=== PATIENT | male | born 1955 | race African-American/Black ===

== ENCOUNTER 2021-07-17 16:12 | Observation (INO) | payer MEDICARE, OTHER, SELFPAY ==
[2021-07-17 17:13] LABS: #Eosinphils 0.2 thou/uL (0.0-0.7); #Lymphocytes 1.2 thou/uL (1.20-3.40); #Monocytes 0.7 thou/uL (0.11-0.59); #Neutrophils 6.5 thou/uL (1.40-6.50); %Eosinophils 2.4 % (0.0-10.0); %Monocytes 7.9 % (0.0-10.0); %Neutrophils 75.7 % (42.0-75.0); Mean Corpuscular HGB CONC 30.7 g/dL (32.0-36.0); Mean Corpuscular Hemoglobin 26.9 pg (27.0-31.0); Mean Corpuscular Volume 87.5 fL (78.0-98.0); Mean Platelet Volume 7.1 fL (7.4-10.4); Platelet Count 253 thou/uL (130-400); RBC Distribution Width 12.2 % (11.5-14.5); Red Blood Cell (RBC) Count 4.45 mill/uL (4.70-6.10); White Blood Cell (WBC) Count 8.6 thou/uL (4.8-10.8)
[2021-07-17 17:52] LABS: ALT (SGPT) 16 U/L (8-55); AST (SGOT) 18 U/L (5-34); Albumin 3.8 g/dL (3.4-4.8); Alkaline Phosphatase 76 U/L (40-110); Anion Gap 12 mmol/L (10-20); BUN (Urea Nitrogen) 12 mg/dL (8.4-25.7); Bilirubin, Total 0.6 mg/dL (0.2-1.2); Calc. Creatinine Clearance 0 mL/min (70-130); Carbon Dioxide 30 mmol/L (23-31); Chloride 103 mmol/L (98-107); Glucose 132 mg/dL (80-115); Potassium 4.1 mmol/L (3.5-5.1); Protein, Total 6.8 g/dL (5.8-8.1); Sodium 141 mmol/L (136-145)
[2021-07-17] MEDS ORDERED: Aspirin Chewable 81 MG TAB ONE (18:11)
[2021-07-17] MEDS ORDERED: Diazepam 5 MG TAB ONE (19:22)
[2021-07-17] MEDS ORDERED: Ondansetron PF 4 MG/2 ML Vial IVP PRN (19:44)
[2021-07-17] MEDS ORDERED: Labetalol HCl 100 MG/20 ML VIAL SLOW IVP PRN (19:44)
[2021-07-17] MEDS ORDERED: hydrALAZINE 20 MG/ML VIAL SLOW IVP PRN (19:44)
[2021-07-17] MEDS ORDERED: Acetaminophen 325 MG TAB PO PRN (19:44)
[2021-07-17] MEDS: Heparin 5,000 UNITS/ML VIAL SC SCH (21:55)
[2021-07-17] MEDS ORDERED: Non-Formulary Item 1 EACH (Fluticasone/Salmeterol [Advair Hfa 230/21 Inhaler] 12 GM Hfa.A INH PRN (22:27)
[2021-07-17] MEDS ORDERED: traZODone HCl 50 MG TAB PO PRN (22:27)
[2021-07-17] MEDS ORDERED: Albuterol Sulfate 2.5 mg/3 ml Neb NEB PRN (22:28)
[2021-07-17 22:57] VITALS: BMI 30.4
[2021-07-18 05:42] LABS: #Eosinphils 0.4 thou/uL (0.0-0.7); #Lymphocytes 2.2 thou/uL (1.20-3.40); #Monocytes 0.7 thou/uL (0.11-0.59); #Neutrophils 4.4 thou/uL (1.40-6.50); %Basophils 0.4 % (0.0-1.0); %Eosinophils 5.5 % (0.0-10.0); %Monocytes 8.7 % (0.0-10.0); %Neutrophils 57.4 % (42.0-75.0); Mean Corpuscular HGB CONC 31.7 g/dL (32.0-36.0); Mean Corpuscular Volume 88.2 fL (78.0-98.0); Mean Platelet Volume 7.4 fL (7.4-10.4); Platelet Count 249 thou/uL (130-400); RBC Distribution Width 12.1 % (11.5-14.5); Red Blood Cell (RBC) Count 4.29 mill/uL (4.70-6.10); White Blood Cell (WBC) Count 7.7 thou/uL (4.8-10.8)
[2021-07-18 05:52] LABS: Anion Gap 14 mmol/L (10-20); BUN (Urea Nitrogen) 14 mg/dL (8.4-25.7); Calc. Creatinine Clearance 86 mL/min (70-130); Calcium 8.7 mg/dL (7.8-10.44); Carbon Dioxide 25 mmol/L (23-31); Chloride 104 mmol/L (98-107); Cholesterol 139 mg/dl (< 200 Desired); Glucose 106 mg/dL (80-115); HDL Cholesterol 28 mg/dL (>60 Neg Risk); LDL Cholesterol, Calculated 95 mg/dL; Potassium 3.3 mmol/L (3.5-5.1); Sodium 140 mmol/L (136-145); Triglycerides 80 mg/dL (Less than 150)
[2021-07-18] MEDS ORDERED: Potassium Chloride 20 MEQ TAB PO SCH (07:00)
[2021-07-18] MEDS: Heparin 5,000 UNITS/ML VIAL SC SCH (08:44)
[2021-07-18] MEDS ORDERED: Montelukast Sodium 10 mg Tablet PO SCH (09:00)
[2021-07-18 09:04] VITALS: TEMP 97.6
[2021-07-18 11:15] LABS: SARS-CoV-2 PCR by NAA Not Detected (NotDetected)
[2021-07-18 12:05] VITALS: BP 142/87
[2021-07-18] MEDS ORDERED: Aspirin 325 MG TAB PO SCH (15:00)
== END 2021-07-18 15:25 | disposition home or self-care (01) ==
LOC: ERS 16:12 → NEURO 18:50 → INTOOBSV 18:50
PROVIDERS: ADMIT Internal Medicine; ATTEND Internal Medicine
DX: G45.9 Transient cerebral ischemic attack, unspecified (principal); E87.6 Hypokalemia; N17.9 Acute kidney failure, unspecified; I10 Essential (primary) hypertension; J45.909 Unspecified asthma, uncomplicated; J32.9 Chronic sinusitis, unspecified; Z86.73 Personal history of transient ischemic attack (TIA), and cerebral infarction without residual deficits; Z87.891 Personal history of nicotine dependence; Z79.899 Other long term (current) drug therapy; Z88.0 Allergy status to penicillin; Z91.018 Allergy to other foods; Z20.822 Contact with and (suspected) exposure to COVID-19
CPT/HCPCS: 70450; 70551; 80048; 80053; 80061; 84484; 85025 ×2; 93005; 93306; 93880; 96372 ×2; 99285; G0378 ×3; U0003; U0005; 36415; J1644

== ENCOUNTER 2022-03-26 11:48 | Outpatient (CLI) | payer MEDICARE | END 2022-03-26 11:49 | disposition home or self-care (01) | LOC: ULT 11:48 | PROVIDERS: ATTEND Family Medicine | DX: I73.9 Peripheral vascular disease, unspecified (principal) | CPT/HCPCS: 93922 ==

== ENCOUNTER 2023-07-04 13:59 | Emergency (ER) | payer MEDICARE ==
[~2023-07-04 13:59] MED LIST: Iopamidol-370 76% 500 ML MDV (1 ML CHARGE) ONE
[2023-07-04 14:41] LABS: #Eosinphils 0.1 thou/uL (0.0-0.7); #Monocytes 0.9 thou/uL (0.11-0.59); #Neutrophils 4.5 thou/uL (1.40-6.50); %Basophils 0.3 % (0.0-1.0); %Eosinophils 1.5 % (0.0-10.0); %Lymphocytes 16.1 % (21.0-51.0); %Monocytes 13.4 % (0.0-10.0); %Neutrophils 68.2 % (42.0-75.0); Hematocrit 33.6 % (42.0-52.0); Hemoglobin 10.4 g/dL (14.0-18.0); Mean Corpuscular Hemoglobin 26.9 pg (27.0-31.0); Mean Platelet Volume 9.4 fL (7.4-10.4); Platelet Count 358 10x3/uL (130-400); Red Blood Cell (RBC) Count 3.86 mill/uL (4.70-6.10); White Blood Cell (WBC) Count 6.6 10x3/uL (4.8-10.8)
[2023-07-04 15:05] LABS: ALT (SGPT) 13 U/L (8-55); AST (SGOT) 19 U/L (5-34); Albumin 3.9 g/dL (3.4-4.8); Alkaline Phosphatase 76 U/L (40-110); Anion Gap 13 mmol/L (10-20); BUN (Urea Nitrogen) 10 mg/dL (8.4-25.7); Bilirubin, Total 0.7 mg/dL (0.2-1.2); Calc. Creatinine Clearance 0 mL/min (70-130); Calcium 9.1 mg/dL (7.8-10.44); Carbon Dioxide 29 mmol/L (23-31); Chloride 97 mmol/L (98-107); Estimated GFR 90; Globulin 3.3 g/dL (2.4-3.5); Glucose 108 mg/dL (80-115); Lipase 23 U/L (8-78); Potassium 3.3 mmol/L (3.5-5.1); Protein, Total 7.2 g/dL (5.8-8.1); Sodium 136 mmol/L (136-145)
[2023-07-04] MEDS ORDERED: Acetaminophen 500 MG TAB ONE (15:35)
[2023-07-04] MEDS ORDERED: Potassium Chloride 20 MEQ TAB ONE (15:35)
[2023-07-04] MEDS ORDERED: Ondansetron PF 4 MG/2 ML Vial ONE (15:35)
[2023-07-04 16:30] LABS: Troponin I Less than 0.010 ng/mL (< 0.028)
[2023-07-04 18:29] LABS: Bacteria/HPF None Seen HPF (None Seen); Bilirubin Negative (Negative); Blood, Urine Negative (Negative); CAUTI Indications for Culture Dysuria,urgency,freq; Clarity Clear (Clear); Glucose, Urine (Dipstick) Normal (Negative); Ketone, Urine 40 mg/dL (Negative); Leukocyte Negative Leu/uL (Negative); Nitrite Negative (Negative); Protein, Urine (Dipstick) 50 mg/dL (Neg-Trace); RBC/HPF 0-3 HPF (0-3); Specific Gravity, Urine 1.025 (1.002-1.036); Squamous Epithelial 0-3 HPF (0-3); Urobilinogen Normal mg/dL (Less than 2); WBC/HPF 0-3 HPF (0-3)
[2023-07-04 18:30] LABS: Urine Culture Reflex No No
== END 2023-07-04 18:33 | disposition home or self-care (01) ==
LOC: ERS 13:59
DX: K63.89 Other specified diseases of intestine (principal); I10 Essential (primary) hypertension
CPT/HCPCS: 36415; 74177; 80053; 81001; 83690; 84484; 85025; 93005; 96361; 96374; J2405; Q9967

== ENCOUNTER 2023-07-07 22:00 | Inpatient (IN) | payer MEDICARE, OTHER, SELFPAY ==
[2023-07-07] MEDS ORDERED: Morphine 4 MG/ML VIAL ONE (22:35)
[2023-07-07] MEDS ORDERED: Ondansetron PF 4 MG/2 ML Vial ONE (22:35)
[2023-07-07 22:52] LABS: #Eosinphils 0.2 thou/uL (0.0-0.7); #Monocytes 0.9 thou/uL (0.11-0.59); #Neutrophils 3.8 thou/uL (1.40-6.50); %Basophils 0.3 % (0.0-1.0); %Eosinophils 3.2 % (0.0-10.0); %Lymphocytes 18.4 % (21.0-51.0); %Monocytes 15.3 % (0.0-10.0); %Neutrophils 62.3 % (42.0-75.0); Hematocrit 34.9 % (42.0-52.0); Hemoglobin 10.8 g/dL (14.0-18.0); Mean Corpuscular HGB CONC 30.9 g/dL (32.0-36.0); Mean Corpuscular Hemoglobin 26.4 pg (27.0-31.0); Mean Corpuscular Volume 85.3 fl (78.0-98.0); Mean Platelet Volume 9.1 fL (7.4-10.4); Platelet Count 441 10x3/uL (130-400); RBC Distribution Width 12.8 % (11.5-14.5); Red Blood Cell (RBC) Count 4.09 mill/uL (4.70-6.10)
[2023-07-07 23:31] LABS: ALT (SGPT) 19 U/L (8-55); AST (SGOT) 27 U/L (5-34); Alkaline Phosphatase 83 U/L (40-110); Anion Gap 10 mmol/L (10-20); BUN (Urea Nitrogen) 10 mg/dL (8.4-25.7); Bilirubin, Total 0.7 mg/dL (0.2-1.2); Calc. Creatinine Clearance 0 mL/min (70-130); Calcium 9.2 mg/dL (7.8-10.44); Carbon Dioxide 35 mmol/L (23-31); Chloride 94 mmol/L (98-107); Estimated GFR 70; Globulin 3.4 g/dL (2.4-3.5); Glucose 101 mg/dL (80-115); Lipase 33 U/L (8-78); Potassium 3.3 mmol/L (3.5-5.1); Protein, Total 7.4 g/dL (5.8-8.1); Sodium 136 mmol/L (136-145)
[2023-07-08] MEDS ORDERED: Morphine 4 MG/ML VIAL ONE (00:09)
[2023-07-08] MEDS ORDERED: Albuterol 2.5 MG (3 mL) NEB NEB PRN (00:31)
[2023-07-08 01:08] VITALS: BMI 26.7
[2023-07-08] MEDS: hydrALAZINE 20 MG/ML VIAL SLOW IVP SCH (01:33)
[2023-07-08] MEDS: Sodium Chloride 0.9% 1,000 ML IV SCH (01:34)
[2023-07-08] MEDS: Ipratropium/Albuterol 3 ML NEB NEB SCH (02:39)
[2023-07-08] MEDS: Morphine 4 MG/ML VIAL SLOW IVP PRN (03:22)
[2023-07-08 05:15] LABS: #Eosinphils 0.2 thou/uL (0.0-0.7); #Monocytes 0.9 thou/uL (0.11-0.59); #Neutrophils 3.7 thou/uL (1.40-6.50); %Basophils 0.3 % (0.0-1.0); %Eosinophils 3.1 % (0.0-10.0); %Lymphocytes 21.5 % (21.0-51.0); %Neutrophils 59.8 % (42.0-75.0); Hematocrit 30.1 % (42.0-52.0); Hemoglobin 9.2 g/dL (14.0-18.0); Mean Corpuscular HGB CONC 30.6 g/dL (32.0-36.0); Mean Corpuscular Hemoglobin 26.7 pg (27.0-31.0); Mean Corpuscular Volume 87.2 fl (78.0-98.0); Mean Platelet Volume 9.4 fL (7.4-10.4); Platelet Count 407 10x3/uL (130-400); RBC Distribution Width 12.9 % (11.5-14.5); Red Blood Cell (RBC) Count 3.45 mill/uL (4.70-6.10); White Blood Cell (WBC) Count 6.2 10x3/uL (4.8-10.8)
[2023-07-08 05:41] LABS: ALT (SGPT) 14 U/L (8-55); AST (SGOT) 23 U/L (5-34); Albumin 3.4 g/dL (3.4-4.8); Alkaline Phosphatase 70 U/L (40-110); Anion Gap 11 mmol/L (10-20); BUN (Urea Nitrogen) 9 mg/dL (8.4-25.7); Bilirubin, Total 0.5 mg/dL (0.2-1.2); Calc. Creatinine Clearance 101 mL/min (70-130); Calcium 8.3 mg/dL (7.8-10.44); Carbon Dioxide 32 mmol/L (23-31); Chloride 98 mmol/L (98-107); Estimated GFR 94; Globulin 2.7 g/dL (2.4-3.5); Glucose 89 mg/dL (80-115); Potassium 3.3 mmol/L (3.5-5.1); Protein, Total 6.1 g/dL (5.8-8.1); Sodium 138 mmol/L (136-145)
[2023-07-08] MEDS: Morphine 2 MG/ML VIAL SLOW IVP PRN (05:46)
[2023-07-08] MEDS: Mometasone 200 MCG/Formoterol 5 MCG 120 PUFF INHALER INH SCH (06:15)
[2023-07-08] MEDS: Potassium Chloride 20 MEQ in Premix 1 BAG IVPB SCH (08:05)
[2023-07-08] MEDS ORDERED: hydrALAZINE 20 MG/ML VIAL SLOW IVP PRN (08:26)
[2023-07-08] MEDS ORDERED: PROPOFOL 20 ML ONE (13:40)
[2023-07-08] MEDS ORDERED: Rocuronium Bromide 10 MG/ML (10ML VIAL) ONE ×2 (13:40→16:13)
[2023-07-08] MEDS ORDERED: Lidocaine 2% PF 5 ML VIAL ONE (13:40)
[2023-07-08] MEDS ORDERED: fentaNYL PF 100 MCG/2 ML SYRINGE ONE ×2 (13:41→14:23)
[2023-07-08] MEDS ORDERED: Clindamycin/D5W 600 mg/50 ml Premix Bag ONE (13:43)
[2023-07-08] MEDS ORDERED: SUCCINYLCHOLINE/SOD CL,ISO/PF 200 MG/10 ML SYRINGE FS ONE (14:01)
[2023-07-08] MEDS ORDERED: fentaNYL 50 mcg/mL 1 mL Vial ONE ×5 (16:12→19:34)
[2023-07-08] MEDS ORDERED: Dexamethasone 4 mg/ml Vial ONE (17:14)
[2023-07-08] MEDS ORDERED: Ondansetron PF 4 MG/2 ML Vial ONE (17:14)
[2023-07-08] MEDS ORDERED: SUGAMMADEX SODIUM 200 MG/2 ML VIAL ONE (17:14)
[2023-07-09 05:27] LABS: #Monocytes 1.5 thou/uL (0.11-0.59); #Neutrophils 15.1 thou/uL (1.40-6.50); %Basophils 0.1 % (0.0-1.0); %Lymphocytes 3.2 % (21.0-51.0); %Monocytes 8.7 % (0.0-10.0); %Neutrophils 87.1 % (42.0-75.0); Hematocrit 29.1 % (42.0-52.0); Hemoglobin 8.8 g/dL (14.0-18.0); Mean Corpuscular HGB CONC 30.2 g/dL (32.0-36.0); Mean Corpuscular Volume 85.8 fl (78.0-98.0); Mean Platelet Volume 9.5 fL (7.4-10.4); Platelet Count 452 10x3/uL (130-400); Red Blood Cell (RBC) Count 3.39 mill/uL (4.70-6.10); White Blood Cell (WBC) Count 17.4 10x3/uL (4.8-10.8)
[2023-07-09 05:43] LABS: Actual Bicarbonate (HCO3v) 26.9 mEq/L (22-28); Base Excess 1.5 mEq/L (-2.0 to +3.0); Calcium, Ionized (venous) 1.08 mmol/L (1.16-1.32); Chloride (VBG) 99 mmol/L (98-106); Hematocrit-VBG 30 % (42.0-52.0); Hemoglobin (Hb) 10.1 g/dL (12.6-17.4); Potassium (VBG) 4.05 mmol/L (3.70-5.30); Sodium 135 mmol/L (133-146); pH (venous) 7.387 (7.32-7.43)
[2023-07-09] MEDS ORDERED: traMADol HCl 50 MG TAB PO PRN (05:58)
[2023-07-09 06:00] LABS: ALT (SGPT) 20 U/L (8-55); AST (SGOT) 23 U/L (5-34); Albumin 2.8 g/dL (3.4-4.8); Alkaline Phosphatase 53 U/L (40-110); Anion Gap 12 mmol/L (10-20); BUN (Urea Nitrogen) 11 mg/dL (8.4-25.7); Bilirubin, Total 1.5 mg/dL (0.2-1.2); Calc. Creatinine Clearance 98 mL/min (70-130); Calcium 8.1 mg/dL (7.8-10.44); Carbon Dioxide 28 mmol/L (23-31); Chloride 100 mmol/L (98-107); Estimated GFR 91; Globulin 2.4 g/dL (2.4-3.5); Glucose 134 mg/dL (80-115); Potassium 4.1 mmol/L (3.5-5.1); Protein, Total 5.2 g/dL (5.8-8.1); Sodium 136 mmol/L (136-145)
[2023-07-09] MEDS: fentaNYL 50 mcg/mL 1 mL Vial SLOW IVP SCH (11:16)
[2023-07-09] MEDS: traMADol HCl 50 MG TAB PO SCH (12:38)
[2023-07-09] MEDS: Ketorolac Tromethamine 30 MG (1 mL) VIAL IVP SCH (17:58)
[2023-07-10 06:36] LABS: #Monocytes 1.4 thou/uL (0.11-0.59); #Neutrophils 11.1 thou/uL (1.40-6.50); %Basophils 0.1 % (0.0-1.0); %Eosinophils 0.3 % (0.0-10.0); %Lymphocytes 6.9 % (21.0-51.0); %Neutrophils 81.9 % (42.0-75.0); Hematocrit 27.5 % (42.0-52.0); Hemoglobin 8.1 g/dL (14.0-18.0); Mean Corpuscular HGB CONC 29.5 g/dL (32.0-36.0); Mean Corpuscular Hemoglobin 26.1 pg (27.0-31.0); Mean Corpuscular Volume 88.7 fl (78.0-98.0); Mean Platelet Volume 9.5 fL (7.4-10.4); Platelet Count 417 10x3/uL (130-400); RBC Distribution Width 13.2 % (11.5-14.5); White Blood Cell (WBC) Count 13.6 10x3/uL (4.8-10.8)
[2023-07-10 07:02] LABS: ALT (SGPT) 18 U/L (8-55); AST (SGOT) 24 U/L (5-34); Albumin 2.8 g/dL (3.4-4.8); Alkaline Phosphatase 54 U/L (40-110); Anion Gap 11 mmol/L (10-20); BUN (Urea Nitrogen) 14 mg/dL (8.4-25.7); Bilirubin, Total 2.1 mg/dL (0.2-1.2); Calc. Creatinine Clearance 109 mL/min (70-130); Calcium 8.1 mg/dL (7.8-10.44); Carbon Dioxide 28 mmol/L (23-31); Chloride 101 mmol/L (98-107); Estimated GFR 96; Globulin 2.6 g/dL (2.4-3.5); Glucose 90 mg/dL (80-115); Potassium 3.9 mmol/L (3.5-5.1); Protein, Total 5.4 g/dL (5.8-8.1); Sodium 136 mmol/L (136-145)
[2023-07-10] MEDS: Enoxaparin 40 MG (0.4 mL) SYRINGE SC SCH (08:41)
[2023-07-10] MEDS: Sodium Chloride 0.9% 500 ML IV SCH (21:07)
[2023-07-10] MEDS: Acetaminophen 325 MG TAB PO PRN (23:44)
[2023-07-11 05:55] LABS: #Eosinphils 0.4 thou/uL (0.0-0.7); #Monocytes 1.3 thou/uL (0.11-0.59); #Neutrophils 10.2 thou/uL (1.40-6.50); %Basophils 0.2 % (0.0-1.0); %Eosinophils 3.3 % (0.0-10.0); %Lymphocytes 8.3 % (21.0-51.0); %Monocytes 9.6 % (0.0-10.0); %Neutrophils 77.8 % (42.0-75.0); Hemoglobin 8.2 g/dL (14.0-18.0); Mean Corpuscular HGB CONC 30.4 g/dL (32.0-36.0); Mean Corpuscular Volume 88.8 fl (78.0-98.0); Mean Platelet Volume 8.8 fL (7.4-10.4); Platelet Count 391 10x3/uL (130-400); RBC Distribution Width 13.3 % (11.5-14.5); Red Blood Cell (RBC) Count 3.04 mill/uL (4.70-6.10); White Blood Cell (WBC) Count 13.1 10x3/uL (4.8-10.8)
[2023-07-11 06:27] LABS: ALT (SGPT) 23 U/L (8-55); AST (SGOT) 28 U/L (5-34); Albumin 2.8 g/dL (3.4-4.8); Alkaline Phosphatase 57 U/L (40-110); Anion Gap 11 mmol/L (10-20); BUN (Urea Nitrogen) 13 mg/dL (8.4-25.7); Bilirubin, Total 2.4 mg/dL (0.2-1.2); Calc. Creatinine Clearance 116 mL/min (70-130); Calcium 8.1 mg/dL (7.8-10.44); Carbon Dioxide 26 mmol/L (23-31); Chloride 104 mmol/L (98-107); Estimated GFR 98; Globulin 2.6 g/dL (2.4-3.5); Glucose 95 mg/dL (80-115); Potassium 4.1 mmol/L (3.5-5.1); Protein, Total 5.4 g/dL (5.8-8.1); Sodium 137 mmol/L (136-145)
[2023-07-11] MEDS ORDERED: HYDROcodone/Acetaminophen 7.5/325 mg Tablet PO PRN (12:37)
[2023-07-11] MEDS: Polyethylene Glycol 3350 17 GM Packet PO SCH (13:03)
[2023-07-11] MEDS: Senokot S 8.6-50 MG TAB PO SCH ×2 (13:03→20:32)
[2023-07-11] MEDS: Fentanyl 100 MCG/2 ML VIAL SLOW IVP SCH (13:20)
[2023-07-11] MEDS ORDERED: traMADol HCl 50 MG TAB PO PRN (13:22)
[2023-07-11] MEDS: fentaNYL 50 mcg/mL 1 mL Vial SLOW IVP SCH (14:36)
[2023-07-11] MEDS ORDERED: Azithromycin 500 MG in Sodium Chloride 0.9% 250 ML 250 ML IVPB SCH (15:00)
[2023-07-11] MEDS: LevoFLOXacin 750 mg/D5W 750 MG in Premix 1 BAG IVPB SCH (15:56)
[2023-07-11] MEDS: Naproxen 500 MG TAB PO PRN (18:16)
[2023-07-12 05:54] LABS: #Eosinphils 0.6 thou/uL (0.0-0.7); #Monocytes 1.1 thou/uL (0.11-0.59); #Neutrophils 7.1 thou/uL (1.40-6.50); %Basophils 0.2 % (0.0-1.0); %Eosinophils 5.8 % (0.0-10.0); %Monocytes 10.7 % (0.0-10.0); %Neutrophils 70.9 % (42.0-75.0); Hematocrit 29.3 % (42.0-52.0); Hemoglobin 8.6 g/dL (14.0-18.0); Mean Corpuscular HGB CONC 29.4 g/dL (32.0-36.0); Mean Corpuscular Hemoglobin 26.3 pg (27.0-31.0); Mean Corpuscular Volume 89.6 fl (78.0-98.0); Mean Platelet Volume 9.3 fL (7.4-10.4); RBC Distribution Width 13.2 % (11.5-14.5); Red Blood Cell (RBC) Count 3.27 mill/uL (4.70-6.10)
[2023-07-12 06:03] LABS: Platelet Count 497 10x3/uL (130-400)
[2023-07-12 06:16] LABS: ALT (SGPT) 26 U/L (8-55); AST (SGOT) 30 U/L (5-34); Albumin 2.9 g/dL (3.4-4.8); Alkaline Phosphatase 61 U/L (40-110); Anion Gap 13 mmol/L (10-20); BUN (Urea Nitrogen) 12 mg/dL (8.4-25.7); Bilirubin, Total 1.8 mg/dL (0.2-1.2); Calc. Creatinine Clearance 112 mL/min (70-130); Calcium 8.7 mg/dL (7.8-10.44); Carbon Dioxide 28 mmol/L (23-31); Chloride 101 mmol/L (98-107); Estimated GFR 97; Globulin 3.1 g/dL (2.4-3.5); Glucose 107 mg/dL (80-115); Sodium 138 mmol/L (136-145)
[2023-07-12] MEDS: Polyethylene Glycol 3350 17 GM Packet PO SCH (08:23)
[2023-07-12] MEDS: Ondansetron PF 4 MG/2 ML Vial IVP PRN (13:03)
[2023-07-13 06:21] LABS: #Eosinphils 0.5 thou/uL (0.0-0.7); #Monocytes 1.1 thou/uL (0.11-0.59); %Basophils 0.5 % (0.0-1.0); %Eosinophils 5.2 % (0.0-10.0); %Monocytes 12.1 % (0.0-10.0); %Neutrophils 67.2 % (42.0-75.0); Hematocrit 31.5 % (42.0-52.0); Hemoglobin 9.2 g/dL (14.0-18.0); Mean Corpuscular HGB CONC 29.2 g/dL (32.0-36.0); Mean Corpuscular Hemoglobin 25.5 pg (27.0-31.0); Mean Corpuscular Volume 87.3 fl (78.0-98.0); Mean Platelet Volume 9.1 fL (7.4-10.4); Platelet Count 545 10x3/uL (130-400); RBC Distribution Width 13.2 % (11.5-14.5); Red Blood Cell (RBC) Count 3.61 mill/uL (4.70-6.10); White Blood Cell (WBC) Count 8.9 10x3/uL (4.8-10.8)
[2023-07-13 06:47] LABS: ALT (SGPT) 38 U/L (8-55); AST (SGOT) 45 U/L (5-34); Alkaline Phosphatase 61 U/L (40-110); Anion Gap 13 mmol/L (10-20); BUN (Urea Nitrogen) 13 mg/dL (8.4-25.7); Bilirubin, Total 1.6 mg/dL (0.2-1.2); Calc. Creatinine Clearance 115 mL/min (70-130); Calcium 9.1 mg/dL (7.8-10.44); Carbon Dioxide 32 mmol/L (23-31); Chloride 98 mmol/L (98-107); Estimated GFR 97; Glucose 99 mg/dL (80-115); Potassium 3.9 mmol/L (3.5-5.1); Sodium 139 mmol/L (136-145)
[2023-07-13] MEDS: Scopolamine 1 mg/72 hour Patch TD SCH (12:04)
[2023-07-13] MEDS: Metoclopramide HCl 10 MG (2 mL) VIAL IVP SCH (12:04)
[2023-07-13] MEDS ORDERED: Metoclopramide HCl 10 MG (2 mL) VIAL IVP SCH (14:00)
[2023-07-13] MEDS: Morphine 2 MG/ML VIAL SLOW IVP PRN (18:50)
[2023-07-13] MEDS: Acetaminophen/Codeine 30-300mg Tablet PO PRN (23:59)
[2023-07-14 06:09] LABS: #Eosinphils 0.3 thou/uL (0.0-0.7); #Monocytes 1.1 thou/uL (0.11-0.59); #Neutrophils 5.8 thou/uL (1.40-6.50); %Basophils 0.5 % (0.0-1.0); %Eosinophils 2.9 % (0.0-10.0); %Lymphocytes 12.9 % (21.0-51.0); %Monocytes 13.3 % (0.0-10.0); %Neutrophils 67.7 % (42.0-75.0); Hematocrit 29.3 % (42.0-52.0); Hemoglobin 8.7 g/dL (14.0-18.0); Mean Corpuscular HGB CONC 29.7 g/dL (32.0-36.0); Mean Corpuscular Hemoglobin 25.5 pg (27.0-31.0); Mean Corpuscular Volume 85.9 fl (78.0-98.0); Mean Platelet Volume 9.1 fL (7.4-10.4); Platelet Count 503 10x3/uL (130-400); RBC Distribution Width 13.4 % (11.5-14.5); Red Blood Cell (RBC) Count 3.41 mill/uL (4.70-6.10); White Blood Cell (WBC) Count 8.5 10x3/uL (4.8-10.8)
[2023-07-14 06:30] LABS: ALT (SGPT) 49 U/L (8-55); AST (SGOT) 63 U/L (5-34); Albumin 2.8 g/dL (3.4-4.8); Alkaline Phosphatase 66 U/L (40-110); Anion Gap 12 mmol/L (10-20); BUN (Urea Nitrogen) 12 mg/dL (8.4-25.7); Bilirubin, Total 1.6 mg/dL (0.2-1.2); Calc. Creatinine Clearance 121 mL/min (70-130); Calcium 8.7 mg/dL (7.8-10.44); Carbon Dioxide 31 mmol/L (23-31); Chloride 97 mmol/L (98-107); Estimated GFR 99; Globulin 2.8 g/dL (2.4-3.5); Glucose 91 mg/dL (80-115); Potassium 3.7 mmol/L (3.5-5.1); Protein, Total 5.6 g/dL (5.8-8.1); Sodium 136 mmol/L (136-145)
[2023-07-14] MEDS: Ondansetron PF 4 MG/2 ML Vial IVP PRN (18:07)
[2023-07-15 05:00] LABS: #Eosinphils 0.2 thou/uL (0.0-0.7); #Monocytes 1.2 thou/uL (0.11-0.59); #Neutrophils 5.7 thou/uL (1.40-6.50); %Basophils 0.1 % (0.0-1.0); %Eosinophils 2.9 % (0.0-10.0); %Monocytes 13.9 % (0.0-10.0); %Neutrophils 68.4 % (42.0-75.0); Hematocrit 27.2 % (42.0-52.0); Hemoglobin 8.2 g/dL (14.0-18.0); Mean Corpuscular HGB CONC 30.1 g/dL (32.0-36.0); Mean Corpuscular Hemoglobin 25.7 pg (27.0-31.0); Mean Corpuscular Volume 85.3 fl (78.0-98.0); Mean Platelet Volume 8.6 fL (7.4-10.4); RBC Distribution Width 13.3 % (11.5-14.5); Red Blood Cell (RBC) Count 3.19 mill/uL (4.70-6.10); White Blood Cell (WBC) Count 8.3 10x3/uL (4.8-10.8)
[2023-07-15 05:05] LABS: Platelet Count 396 10x3/uL (130-400)
[2023-07-15 05:26] LABS: ALT (SGPT) 65 U/L (8-55); AST (SGOT) 77 U/L (5-34); Albumin 2.7 g/dL (3.4-4.8); Alkaline Phosphatase 76 U/L (40-110); Anion Gap 11 mmol/L (10-20); BUN (Urea Nitrogen) 9 mg/dL (8.4-25.7); Bilirubin, Total 1.5 mg/dL (0.2-1.2); Calc. Creatinine Clearance 119 mL/min (70-130); Calcium 8.3 mg/dL (7.8-10.44); Carbon Dioxide 30 mmol/L (23-31); Chloride 97 mmol/L (98-107); Estimated GFR 99; Globulin 2.7 g/dL (2.4-3.5); Glucose 103 mg/dL (80-115); Potassium 3.7 mmol/L (3.5-5.1); Protein, Total 5.4 g/dL (5.8-8.1); Sodium 134 mmol/L (136-145)
[2023-07-15] MEDS ORDERED: Iopamidol-370 76% 500 ML MDV (1 ML CHARGE) ONE (11:28)
[2023-07-15 17:02] VITALS: BP 149/77; TEMP 98
== END 2023-07-15 17:05 | disposition home or self-care (01) | DRG 329 ==
LOC: ERS 22:00 → T4-A 07-08 00:31 → OBSVTOIN 07-08 00:31
PROVIDERS: ADMIT Student in an Organized Health Care Education/Training Program; ATTEND Family Medicine
PROC: 0DTF0ZZ Resection of Right Large Intestine, Open Approach (ICD-10-PCS; principal; 2023-07-08)
PROC: 0DBV0ZX Excision of Mesentery, Open Approach, Diagnostic (ICD-10-PCS; 2023-07-08)
DX: C18.9 Malignant neoplasm of colon, unspecified (principal); J18.9 Pneumonia, unspecified organism; J96.01 Acute respiratory failure with hypoxia; K56.609 Unspecified intestinal obstruction, unspecified as to partial versus complete obstruction; N39.0 Urinary tract infection, site not specified; J45.50 Severe persistent asthma, uncomplicated; D64.9 Anemia, unspecified; Z79.82 Long term (current) use of aspirin; Z88.0 Allergy status to penicillin; Z79.899 Other long term (current) drug therapy; I10 Essential (primary) hypertension; Z98.890 Other specified postprocedural states; Z87.891 Personal history of nicotine dependence; Z83.3 Family history of diabetes mellitus
CPT/HCPCS: 36415; 71045; 71046; 71260; 74018; 74177; 80053; 82378; 82805; 83605; 83690; 83735; 85025; 86850; 86900; 86901; 88305; 88309; 88341; 88342; 93005; 93010; 94640; 96374; 96375; 96376; A4314; J0360; J1100; J1650; J1885; J1956; J2001; J2270; J2272; J2405; J2704; J2765; J3010; J3480; J3490; J7030; J7050; J7620; Q9967

== ENCOUNTER 2023-11-03 13:26 | Outpatient (CLI) | payer MEDICARE | END 2023-11-03 13:27 | disposition home or self-care (01) | LOC: CT 13:26 | PROVIDERS: ATTEND Internal Medicine Hematology & Oncology | DX: C18.0 Malignant neoplasm of cecum (principal); C78.5 Secondary malignant neoplasm of large intestine and rectum; K80.20 Calculus of gallbladder without cholecystitis without obstruction; N40.0 Benign prostatic hyperplasia without lower urinary tract symptoms; Z90.49 Acquired absence of other specified parts of digestive tract | CPT/HCPCS: 71260; 74177 ==

== ENCOUNTER 2024-04-24 18:18 | Inpatient (IN) | payer MEDICARE ==
[2024-04-24] MEDS ORDERED: Morphine 4 MG/ML VIAL ONE (19:16)
[2024-04-24] MEDS ORDERED: Ondansetron PF 4 MG/2 ML Vial ONE ×2 (19:18→21:56)
[2024-04-24 19:26] LABS: Hematocrit 43.2 % (42.0-52.0); Hemoglobin 14.8 g/dL (14.0-18.0); Mean Corpuscular HGB CONC 34.3 g/dL (32.0-36.0); Mean Corpuscular Hemoglobin 33.2 pg (27.0-31.0); Mean Corpuscular Volume 96.9 fL (78.0-98.0); Mean Platelet Volume 10.2 fL (7.4-10.4); Platelet Count 215 10x3/uL (130-400); RBC Distribution Width 15.8 % (11.5-14.5); Red Blood Cell (RBC) Count 4.46 mill/uL (4.70-6.10)
[2024-04-24 19:45] LABS: Band 14 % (5-11); Eosinophils 5 % (0-10); Lymphocytes 13 % (21-51); Macrocytosis SLIGHT = 6-15 cells HPF (0-5); Monocytes 20 % (0-10); Neutrophil 44 % (42-75); Platelet Adequacy Comment Platelets Normal; Polychromasia SLIGHT = 2-3 cells HPF (0-2); Reactive Lymphocytes 4 % (0-10); Tear Drops SLIGHT = 2-5 cells HPF (0-1)
[2024-04-24 19:48] LABS: ALT (SGPT) 23 U/L (8-55); AST (SGOT) 39 U/L (5-34); Alkaline Phosphatase 95 U/L (40-110); Anion Gap 18 mmol/L (10-20); BUN (Urea Nitrogen) 35 mg/dL (8.4-25.7); Bilirubin, Total 1.7 mg/dL (0.2-1.2); Calc. Creatinine Clearance 0 mL/min (70-130); Calcium 8.9 mg/dL (7.8-10.44); Carbon Dioxide 21 mmol/L (23-31); Chloride 100 mmol/L (98-107); Estimated GFR 33; Globulin 3.5 g/dL (2.4-3.5); Glucose 138 mg/dL (80-115); Lipase 36 U/L (8-78); Magnesium 0.9 mg/dL (1.6-2.6); Potassium 3.5 mmol/L (3.5-5.1); Protein, Total 7.5 g/dL (5.8-8.1); Sodium 135 mmol/L (136-145)
[2024-04-24 19:51] LABS: Troponin I Less than 0.010 ng/mL (< 0.028)
[2024-04-24] MEDS ORDERED: Magnesium 2 GM/50 ML BAG (IN WATER) ONE (20:07)
[2024-04-24] MEDS ORDERED: Acetaminophen 325 MG TAB PO PRN (22:27)
[2024-04-24 23:05] LABS: Lactic Acid 2.23 mmol/L (0.5-2.2)
[2024-04-24] MEDS: Magnesium 2 GM/50 ML(in water) 2 GM in Premix 1 BAG IVPB SCH (23:54)
[2024-04-24] MEDS: Sodium Chloride 0.9% 1,000 ML IV SCH (23:55)
[2024-04-25] MEDS: Ipratropium/Albuterol 3 ML NEB NEB SCH (00:07)
[2024-04-25 06:44] LABS: Hemoglobin 12.9 g/dL (14.0-18.0); Mean Corpuscular HGB CONC 33.1 g/dL (32.0-36.0); Mean Corpuscular Volume 99.7 fL (78.0-98.0); Mean Platelet Volume 10.3 fL (7.4-10.4); Platelet Count 160 10x3/uL (130-400); Red Blood Cell (RBC) Count 3.91 mill/uL (4.70-6.10)
[2024-04-25 06:45] LABS: Band 4 % (5-11); Eosinophils 3 % (0-10); Lymphocytes 6 % (21-51); Monocytes 13 % (0-10); Neutrophil 70 % (42-75); Platelet Adequacy Comment Platelets Normal; Polychromasia SLIGHT = 2-3 cells HPF (0-2); Reactive Lymphocytes 3 % (0-10); Tear Drops SLIGHT = 2-5 cells HPF (0-1)
[2024-04-25 06:48] LABS: Anion Gap 15 mmol/L (10-20); BUN (Urea Nitrogen) 28 mg/dL (8.4-25.7); Calc. Creatinine Clearance 55 mL/min (70-130); Calcium 8.3 mg/dL (7.8-10.44); Carbon Dioxide 20 mmol/L (23-31); Chloride 106 mmol/L (98-107); Estimated GFR 46; Glucose 107 mg/dL (80-115); Magnesium 1.6 mg/dL (1.6-2.6); Potassium 3.6 mmol/L (3.5-5.1); Sodium 137 mmol/L (136-145)
[2024-04-25] MEDS: Mometasone 100 MCG/Formoterol 5 MCG 120 PUFF INHALER INH SCH (07:21)
[2024-04-25] MEDS ORDERED: Non-Formulary Item 1 EACH (Fluticasone/Umeclidin/Vilanter [Trelegy Ellipta 200-62.5-25] 1 INH SCH (09:00)
[2024-04-25 15:51] LABS: Bilirubin Negative (Negative); Blood, Urine 3+ (Negative); CAUTI Indications for Culture Dysuria,urgency,freq; Glucose, Urine (Dipstick) Normal (Negative); Ketone, Urine Trace mg/dL (Negative); Leukocyte Negative Leu/uL (Negative); Nitrite Negative (Negative); Protein, Urine (Dipstick) 30 mg/dL (Neg-Trace); RBC/HPF Greater than 50 HPF (0-3); Specific Gravity, Urine 1.033 (1.002-1.036); Squamous Epithelial 0-3 HPF (0-3); Urobilinogen Normal mg/dL (Less than 2); WBC/HPF 0-3 HPF (0-3); pH, Urine 5.5 (5.0-9.0)
[2024-04-25 15:55] LABS: Bacteria/HPF 1+ HPF (None Seen); Clarity Cloudy (Clear)
[2024-04-25 15:56] LABS: Yeast-Budding 1+ HPF (None Seen)
[2024-04-25 15:57] LABS: Urine Culture Reflex No No
[2024-04-25] MEDS: Enoxaparin 40 MG (0.4 mL) SYRINGE SC SCH (20:15)
[2024-04-25] MEDS: Morphine 2 MG/ML VIAL SLOW IVP PRN (22:24)
[2024-04-26] MEDS: Benzocaine/Menthol 1 LOZ LOZ PO PRN (01:51)
[2024-04-26 04:47] LABS: #Basophils 0.03 10x3/uL (0.0-0.2); %Basophils 0.4 % (0.0-1.0); %Eosinophils 3.6 % (0.0-10.0); %Lymphocytes 17.1 % (21.0-51.0); %Monocytes 17.5 % (0.0-10.0); %Neutrophils 59.9 % (42.0-75.0); Hematocrit 35.2 % (42.0-52.0); Hemoglobin 11.9 g/dL (14.0-18.0); Mean Corpuscular HGB CONC 33.8 g/dL (32.0-36.0); Mean Corpuscular Hemoglobin 33.8 pg (27.0-31.0); Mean Platelet Volume 10.1 fL (7.4-10.4); Platelet Count 141 10x3/uL (130-400); RBC Distribution Width 15.9 % (11.5-14.5); Red Blood Cell (RBC) Count 3.52 mill/uL (4.70-6.10)
[2024-04-26 05:19] LABS: ALT (SGPT) 17 U/L (8-55); AST (SGOT) 30 U/L (5-34); Albumin 3.2 g/dL (3.4-4.8); Alkaline Phosphatase 75 U/L (40-110); Anion Gap 14 mmol/L (10-20); BUN (Urea Nitrogen) 19 mg/dL (8.4-25.7); Bilirubin, Total 1.5 mg/dL (0.2-1.2); Calc. Creatinine Clearance 83 mL/min (70-130); Calcium 8.1 mg/dL (7.8-10.44); Carbon Dioxide 22 mmol/L (23-31); Chloride 106 mmol/L (98-107); Estimated GFR 76; Globulin 2.6 g/dL (2.4-3.5); Glucose 97 mg/dL (80-115); Potassium 3.4 mmol/L (3.5-5.1); Protein, Total 5.8 g/dL (5.8-8.1); Sodium 139 mmol/L (136-145)
[2024-04-26] MEDS: Potassium Chloride 20 MEQ in Premix 1 BAG IVPB SCH (08:29)
[2024-04-26] MEDS: Magnesium 2 GM/50 ML(in water) 2 GM in Premix 1 BAG IVPB SCH (08:30)
[2024-04-26] MEDS: Ketorolac Tromethamine 30 MG (1 mL) VIAL IVP SCH (11:02)
[2024-04-26] MEDS: Pantoprazole 40 MG VIAL IVP SCH (11:03)
[2024-04-26] MEDS ORDERED: MD-Gastroview 120 ML BOT ONE ×2 (12:06→15:20)
[2024-04-26] MEDS: Artificial Tear Ophth Sol 15 ML BOT EA EYE PRN (18:37)
[2024-04-27] MEDS: Ondansetron PF 4 MG/2 ML Vial IVP PRN (03:18)
[2024-04-27 04:45] LABS: #Basophils 0.04 10x3/uL (0.0-0.2); %Basophils 0.5 % (0.0-1.0); %Eosinophils 4.5 % (0.0-10.0); %Lymphocytes 12.2 % (21.0-51.0); %Neutrophils 63.3 % (42.0-75.0); Hematocrit 35.8 % (42.0-52.0); Hemoglobin 12.2 g/dL (14.0-18.0); Mean Corpuscular HGB CONC 34.1 g/dL (32.0-36.0); Mean Corpuscular Hemoglobin 33.4 pg (27.0-31.0); Mean Corpuscular Volume 98.1 fL (78.0-98.0); Platelet Count 126 10x3/uL (130-400); RBC Distribution Width 15.6 % (11.5-14.5); Red Blood Cell (RBC) Count 3.65 mill/uL (4.70-6.10)
[2024-04-27 05:17] VITALS: BMI 26.4
[2024-04-27 05:17] LABS: Anion Gap 13 mmol/L (10-20); BUN (Urea Nitrogen) 15 mg/dL (8.4-25.7); Calc. Creatinine Clearance 80 mL/min (70-130); Calcium 8.6 mg/dL (7.8-10.44); Carbon Dioxide 24 mmol/L (23-31); Chloride 107 mmol/L (98-107); Estimated GFR 73; Glucose 121 mg/dL (80-115); Phosphorus 2.4 mg/dL (2.3-4.7); Potassium 3.4 mmol/L (3.5-5.1); Sodium 142 mmol/L (136-145)
[2024-04-27] MEDS: Pantoprazole 40 MG VIAL IVP SCH (07:32)
[2024-04-27] MEDS: Magnesium Sulfate In Water 4 GM in Premix 1 BAG IVPB SCH (07:52)
[2024-04-27] MEDS: Potassium Chloride 20 MEQ in Premix 1 BAG IVPB SCH (11:17)
[2024-04-27 11:51] VITALS: BMI 26.4
[2024-04-28] MEDS ORDERED: Electrolyte Replacement Protocol 1 EACH FS SCH (00:30)
[2024-04-28] MEDS: Sodium Chloride 0.9% 500 ML IV SCH (01:03)
[2024-04-28 06:11] LABS: Anion Gap 12 mmol/L (10-20); BUN (Urea Nitrogen) 12 mg/dL (8.4-25.7); Calc. Creatinine Clearance 86 mL/min (70-130); Calcium 8.5 mg/dL (7.8-10.44); Carbon Dioxide 24 mmol/L (23-31); Chloride 105 mmol/L (98-107); Estimated GFR 79; Glucose 113 mg/dL (80-115); Phosphorus 1.8 mg/dL (2.3-4.7); Potassium 3.5 mmol/L (3.5-5.1); Sodium 137 mmol/L (136-145)
[2024-04-28] MEDS: Magnesium Sulfate In Water 4 GM in Premix 1 BAG IVPB SCH (06:31)
[2024-04-28] MEDS: Pantoprazole DR 40 MG TAB PO SCH (08:58)
[2024-04-28] MEDS: Potassium Phosphate 15 MMOL in Sodium Chloride 0.9% 100 ML IVPB SCH ×3 (08:58→16:57)
[2024-04-28] MEDS: methylPREDNISolone Sod Succ 40 MG VIAL IVP SCH (08:59)
[2024-04-28] MEDS: Potassium Chloride 20 MEQ in Premix 1 BAG IVPB SCH (13:21)
[2024-04-28 14:21] LABS: Potassium 3.6 mmol/L (3.5-5.1)
[2024-04-28] MEDS: Potassium Chloride 20 MEQ TAB PO SCH (17:11)
[2024-04-28] MEDS: Docusate 100 MG CAP PO SCH (20:09)
[2024-04-29 05:25] LABS: Anion Gap 11 mmol/L (10-20); BUN (Urea Nitrogen) 17 mg/dL (8.4-25.7); Calc. Creatinine Clearance 90 mL/min (70-130); Calcium 8.6 mg/dL (7.8-10.44); Carbon Dioxide 25 mmol/L (23-31); Chloride 103 mmol/L (98-107); Estimated GFR 81; Glucose 165 mg/dL (80-115); Magnesium 1.2 mg/dL (1.6-2.6); Phosphorus 2.3 mg/dL (2.3-4.7); Potassium 3.7 mmol/L (3.5-5.1); Sodium 135 mmol/L (136-145)
[2024-04-29] MEDS: Magnesium Sulfate In Water 4 GM in Premix 1 BAG IVPB SCH (08:21)
[2024-04-29 08:26] VITALS: BP 138/77; TEMP 97.8
== END 2024-04-29 12:38 | disposition home or self-care (01) | DRG 389 ==
LOC: ERS 18:18 → MSONC 21:41
PROVIDERS: ADMIT Internal Medicine; ATTEND Hospitalist
DX: K56.600 Partial intestinal obstruction, unspecified as to cause (principal); C18.9 Malignant neoplasm of colon, unspecified; N17.9 Acute kidney failure, unspecified; E87.20 Acidosis, unspecified; E83.42 Hypomagnesemia; E87.6 Hypokalemia; M10.9 Gout, unspecified; E86.0 Dehydration; I10 Essential (primary) hypertension; J45.909 Unspecified asthma, uncomplicated; D64.9 Anemia, unspecified; K21.9 Gastro-esophageal reflux disease without esophagitis; E83.39 Other disorders of phosphorus metabolism; G62.9 Polyneuropathy, unspecified; Z88.5 Allergy status to narcotic agent; Z92.21 Personal history of antineoplastic chemotherapy; Z90.49 Acquired absence of other specified parts of digestive tract; Z87.891 Personal history of nicotine dependence; Z88.0 Allergy status to penicillin; Z91.018 Allergy to other foods; Z86.73 Personal history of transient ischemic attack (TIA), and cerebral infarction without residual deficits; Z79.899 Other long term (current) drug therapy
CPT/HCPCS: 36415; 43753; 71045; 74018; 74177; 74250; 80048; 80053; 81001; 83605; 83690; 83735; 83880; 84100; 84484; 85025; 87040; 93005; 94640; 96374; 96375; 96376; J1650; J1885; J2272; J2405; J2470; J2919; J3475; J3480; J7030; J7620; Q9963; Q9967

== ENCOUNTER 2024-05-01 01:27 | Inpatient (IN) | payer MEDICARE ==
[2024-05-01 02:46] LABS: #Basophils 0.09 10x3/uL (0.0-0.2); %Basophils 0.4 % (0.0-1.0); %Eosinophils 0.1 % (0.0-10.0); %Lymphocytes 11.1 % (21.0-51.0); Hematocrit 40.3 % (42.0-52.0); Hemoglobin 13.8 g/dL (14.0-18.0); Mean Corpuscular HGB CONC 34.2 g/dL (32.0-36.0); Mean Corpuscular Hemoglobin 33.6 pg (27.0-31.0); Mean Corpuscular Volume 98.1 fL (78.0-98.0); Mean Platelet Volume 10.3 fL (7.4-10.4); Platelet Count 213 10x3/uL (130-400); Red Blood Cell (RBC) Count 4.11 mill/uL (4.70-6.10)
[2024-05-01 03:04] LABS: ALT (SGPT) 50 U/L (8-55); AST (SGOT) 66 U/L (5-34); Albumin 2.7 g/dL (3.4-4.8); Alkaline Phosphatase 105 U/L (40-110); Anion Gap 13 mmol/L (10-20); BUN (Urea Nitrogen) 16 mg/dL (8.4-25.7); Bilirubin, Total 2.5 mg/dL (0.2-1.2); Calc. Creatinine Clearance 0 mL/min (70-130); Calcium 8.3 mg/dL (7.8-10.44); Carbon Dioxide 23 mmol/L (23-31); Chloride 99 mmol/L (98-107); Estimated GFR 73; Globulin 3.5 g/dL (2.4-3.5); Glucose 135 mg/dL (80-115); Lipase 106 U/L (8-78); Potassium 3.4 mmol/L (3.5-5.1); Protein, Total 6.2 g/dL (5.8-8.1); Sodium 132 mmol/L (136-145)
[2024-05-01] MEDS ORDERED: cefTRIAXone (ROCEPHIN) 2 GM VIAL ONE (04:22)
[2024-05-01] MEDS ORDERED: Sodium Chloride 0.9% 100 ML ONE (04:22)
[2024-05-01] MEDS ORDERED: metroNIDAZOLE 500 MG (100 mL) BAG ONE (06:00)
[2024-05-01] MEDS ORDERED: diphenhydrAMINE 50 MG/ML VIAL ONE (06:00)
[2024-05-01] MEDS ORDERED: Acetaminophen 650 MG Suppository PR SCH (08:00)
[2024-05-01 08:23] LABS: Bacteria/HPF None Seen HPF (None Seen); Bilirubin Negative (Negative); Blood, Urine 2+ (Negative); CAUTI Indications for Culture Fever or rigors; Clarity Clear (Clear); Glucose, Urine (Dipstick) Normal (Negative); Ketone, Urine Negative (Negative); Leukocyte Negative Leu/uL (Negative); Nitrite Negative (Negative); Protein, Urine (Dipstick) 30 mg/dL (Neg-Trace); Squamous Epithelial 0-3 HPF (0-3)
[2024-05-01] MEDS ORDERED: Iopamidol-370 76% 500 ML MDV (1 ML CHARGE) ONE (08:23)
[2024-05-01 08:25] LABS: Specific Gravity, Urine Greater than 1.060 (1.002-1.036)
[2024-05-01 08:26] LABS: Urine Culture Reflex No No
[2024-05-01 08:43] VITALS: BMI 27.1
[2024-05-01] MEDS ORDERED: Ondansetron PF 4 MG/2 ML Vial IVP PRN (08:53)
[2024-05-01] MEDS ORDERED: Acetaminophen 325 MG TAB PO PRN (08:53)
[2024-05-01 08:57] LABS: Lactic Acid 1.96 mmol/L (0.5-2.2)
[2024-05-01] MEDS ORDERED: Morphine 4 MG/ML VIAL SLOW IVP PRN (09:04)
[2024-05-01] MEDS ORDERED: Acetaminophen/Codeine 30-300mg Tablet PO PRN (09:04)
[2024-05-01] MEDS: Lactated Ringer's 1,000 ML IV SCH (09:40)
[2024-05-01 10:02] LABS: Magnesium 0.8 mg/dL (1.6-2.6)
[2024-05-01] MEDS: Magnesium 2 GM/50 ML(in water) 2 GM in Premix 1 BAG IVPB SCH (10:04)
[2024-05-01] MEDS: Magnesium Oxide 400 MG TAB PO SCH (10:05)
[2024-05-01] MEDS: Potassium Chloride 20 MEQ in Premix 1 BAG IVPB SCH (10:05)
[2024-05-01] MEDS: Gabapentin 100 MG CAP PO SCH (10:05)
[2024-05-01] MEDS: Albuterol 200 PUFF (6.7GM INHALER) INH PRN (11:17)
[2024-05-01] MEDS: Senokot S 8.6-50 MG TAB PO SCH ×2 (12:05→21:14)
[2024-05-01] MEDS: diphenhydrAMINE 25 MG CAP PO PRN ×2 (12:08→16:58)
[2024-05-01] MEDS: Polyethylene Glycol 3350 17 GM Packet PO SCH (13:15)
[2024-05-01] MEDS: metroNIDAZOLE 500 MG in Premix 1 BAG IVPB SCH (14:47)
[2024-05-01] MEDS ORDERED: DULoxetine 30 MG CAP PO SCH (21:00)
[2024-05-01] MEDS: DULoxetine 30 MG CAP PO SCH (21:14)
[2024-05-01] MEDS: traZODone HCl 50 MG TAB PO SCH (21:14)
[2024-05-01] MEDS: Montelukast Sodium 10 mg Tablet PO SCH (21:14)
[2024-05-02] MEDS: Sodium Chloride 0.9% 1,000 ML IV SCH (05:29)
[2024-05-02 07:20] LABS: ALT (SGPT) 28 U/L (8-55); AST (SGOT) 26 U/L (5-34); Albumin 2.1 g/dL (3.4-4.8); Alkaline Phosphatase 73 U/L (40-110); Anion Gap 12 mmol/L (10-20); BUN (Urea Nitrogen) 14 mg/dL (8.4-25.7); Bilirubin, Total 1.8 mg/dL (0.2-1.2); Calc. Creatinine Clearance 97 mL/min (70-130); Calcium 7.6 mg/dL (7.8-10.44); Carbon Dioxide 24 mmol/L (23-31); Chloride 100 mmol/L (98-107); Estimated GFR 88; Glucose 94 mg/dL (80-115); Potassium 3.1 mmol/L (3.5-5.1); Protein, Total 5.1 g/dL (5.8-8.1); Sodium 133 mmol/L (136-145)
[2024-05-02] MEDS: cefTRIAXone\\ROCEPHIN 1 GM in Sodium Chloride 0.9% 100 ML IVPB SCH (07:43)
[2024-05-02] MEDS: Polyethylene Glycol 3350 17 GM Packet PO SCH (07:44)
[2024-05-02 08:23] LABS: #Basophils 0.07 10x3/uL (0.0-0.2); %Basophils 0.3 % (0.0-1.0); %Eosinophils 0.4 % (0.0-10.0); %Lymphocytes 8.4 % (21.0-51.0); %Monocytes 9.5 % (0.0-10.0); %Neutrophils 78.2 % (42.0-75.0); Hematocrit 32.5 % (42.0-52.0); Hemoglobin 11.1 g/dL (14.0-18.0); Mean Corpuscular HGB CONC 34.2 g/dL (32.0-36.0); Mean Corpuscular Hemoglobin 33.5 pg (27.0-31.0); Mean Corpuscular Volume 98.2 fL (78.0-98.0); Mean Platelet Volume 10.2 fL (7.4-10.4); Platelet Count 147 10x3/uL (130-400); Red Blood Cell (RBC) Count 3.31 mill/uL (4.70-6.10)
[2024-05-02 15:19] VITALS: BP 149/72; TEMP 98.5
== END 2024-05-02 17:15 | disposition short-term general hospital (02) | DRG 872 ==
LOC: ERS 01:27 → SURG A 08:18
PROVIDERS: ADMIT Internal Medicine; ATTEND Internal Medicine
DX: A41.9 Sepsis, unspecified organism (principal); K80.00 Calculus of gallbladder with acute cholecystitis without obstruction; E87.20 Acidosis, unspecified; E87.1 Hypo-osmolality and hyponatremia; C18.9 Malignant neoplasm of colon, unspecified; J45.909 Unspecified asthma, uncomplicated; E87.6 Hypokalemia; E80.6 Other disorders of bilirubin metabolism; G62.9 Polyneuropathy, unspecified; E83.42 Hypomagnesemia; K21.9 Gastro-esophageal reflux disease without esophagitis; Z90.49 Acquired absence of other specified parts of digestive tract; Z92.21 Personal history of antineoplastic chemotherapy; Z79.899 Other long term (current) drug therapy; Z86.73 Personal history of transient ischemic attack (TIA), and cerebral infarction without residual deficits; Z88.5 Allergy status to narcotic agent; Z88.0 Allergy status to penicillin
CPT/HCPCS: 36415; 74177; 76705; 80053; 81001; 83605; 83690; 83735; 85025; 87040; 93005; 93010; 96374; 96375; J0696; J1200; J3475; J3480; J7030; J7120; Q9967

== ENCOUNTER 2024-05-04 19:13 | Inpatient (IN) | payer MEDICARE ==
[2024-05-04] MEDS ORDERED: traMADol HCl 50 MG TAB ONE (23:35)
[2024-05-04] MEDS ORDERED: Piperacillin/Tazobactam 3.375 GM VIAL ONE (23:35)
[2024-05-05] MEDS ORDERED: Piperacillin/Tazobactam 3.375 GM VIAL ONE ×2 (05:39→20:40)
[2024-05-05] MEDS ORDERED: traMADol HCl 50 MG TAB ONE ×2 (05:39→13:11)
[2024-05-05] MEDS ORDERED: Morphine 2 MG/ML VIAL ONE ×2 (09:47→16:54)
[2024-05-05] MEDS ORDERED: Pantoprazole DR 40 MG TAB ONE (09:47)
[2024-05-05] MEDS ORDERED: Enoxaparin 40 MG (0.4 mL) SYRINGE ONE (09:47)
[2024-05-05] MEDS ORDERED: Piperacillin/Tazobactam 4.5 GM VIAL ONE (13:11)
[2024-05-05] MEDS ORDERED: Acetaminophen 325 MG TAB ONE (20:40)
[2024-05-05] MEDS: Piperacillin/Tazobactam 3.375 GM VIAL ONE (21:10)
[2024-05-05] MEDS: Acetaminophen 500 MG TAB ONE (21:10)
[2024-05-05] MEDS: Morphine 2 MG/ML VIAL ONE (21:10)
[2024-05-05] MEDS: Sodium Chloride 0.9% 100 ML ONE (21:10)
[2024-05-05] MEDS ORDERED: Ondansetron PF 4 MG/2 ML Vial SLOW IVP PRN (21:45)
[2024-05-05] MEDS ORDERED: HYDROcodone/Acetaminophen 10/325 mg Tablet PO PRN ×2 (21:45)
[2024-05-06] MEDS: Acetaminophen 325 MG TAB PO PRN (01:05)
[2024-05-06] MEDS ORDERED: traMADol HCl 50 MG TAB ONE (01:05)
[2024-05-06] MEDS: traMADol HCl 50 MG TAB PO PRN (01:05)
[2024-05-06] MEDS ORDERED: Acetaminophen 325 MG TAB ONE ×2 (01:05→05:59)
[2024-05-06] MEDS ORDERED: diphenhydrAMINE 12.5 MG/5 ML UDCUP ONE (03:40)
[2024-05-06] MEDS: diphenhydrAMINE 50 MG/ML VIAL IVP PRN (03:40)
[2024-05-06] MEDS: Piperacillin/Tazobactam 3.375 GM in Sodium Chloride 0.9% 100 ML IVPB SCH (05:39)
[2024-05-06] MEDS ORDERED: Albuterol 200 PUFF (6.7GM INHALER) INH PRN (07:48)
[2024-05-06 08:21] LABS: Hematocrit 33.4 % (42.0-52.0); Hemoglobin 11.1 g/dL (14.0-18.0); Mean Corpuscular HGB CONC 33.2 g/dL (32.0-36.0); Mean Corpuscular Hemoglobin 33.3 pg (27.0-31.0); Mean Corpuscular Volume 100.3 fL (78.0-98.0); Mean Platelet Volume 9.4 fL (7.4-10.4); Platelet Count 268 10x3/uL (130-400); RBC Distribution Width 14.6 % (11.5-14.5); Red Blood Cell (RBC) Count 3.33 mill/uL (4.70-6.10)
[2024-05-06 08:59] LABS: Anion Gap 11 mmol/L (10-20); BUN (Urea Nitrogen) 8 mg/dL (8.4-25.7); Calc. Creatinine Clearance 0 mL/min (70-130); Calcium 7.5 mg/dL (7.8-10.44); Carbon Dioxide 27 mmol/L (23-31); Chloride 98 mmol/L (98-107); Estimated GFR 89; Glucose 115 mg/dL (80-115); Potassium 3.4 mmol/L (3.5-5.1); Sodium 133 mmol/L (136-145)
[2024-05-06 09:12] VITALS: BMI 26.1
[2024-05-06] MEDS: Enoxaparin 40 MG (0.4 mL) SYRINGE SC SCH (09:23)
[2024-05-06] MEDS: Pantoprazole DR 40 MG TAB PO SCH (09:24)
[2024-05-06 09:28] LABS: Band 1 % (5-11); Eosinophils 2 % (0-10); Lymphocytes 12 % (21-51); Macrocytosis SLIGHT = 6-15 cells HPF (0-5); Metamyelocyte 1 % (0-0); Monocytes 19 % (0-10); Neutrophil 64 % (42-75); Ovalocytes SLIGHT = 2-5 cells HPF (0-1); Platelet Adequacy Comment Platelets Normal; Polychromasia SLIGHT = 2-3 cells HPF (0-2); Reactive Lymphocytes 1 % (0-10)
[2024-05-06] MEDS: Gabapentin 100 MG CAP ONE (09:29)
[2024-05-06] MEDS: Potassium Chloride 20 MEQ TAB ONE (09:30)
[2024-05-06 10:26] LABS: Anion Gap 14 mmol/L (10-20); BUN (Urea Nitrogen) 8 mg/dL (8.4-25.7); Calc. Creatinine Clearance 108 mL/min (70-130); Calcium 7.4 mg/dL (7.8-10.44); Carbon Dioxide 25 mmol/L (23-31); Chloride 99 mmol/L (98-107); Estimated GFR 96; Glucose 92 mg/dL (80-115); Potassium 3.3 mmol/L (3.5-5.1); Sodium 135 mmol/L (136-145)
[2024-05-06] MEDS: Ipratropium/Albuterol 3 ML NEB NEB PRN (12:28)
[2024-05-06] MEDS: Gabapentin 100 MG CAP PO SCH (12:30)
[2024-05-06] MEDS: Potassium Chloride 20 MEQ TAB PO SCH (12:30)
[2024-05-06] MEDS: Morphine 2 MG/ML VIAL SLOW IVP PRN (14:54)
[2024-05-06 16:51] LABS: #Basophils 0.04 10x3/uL (0.0-0.2); %Basophils 0.4 % (0.0-1.0); %Eosinophils 1.1 % (0.0-10.0); %Lymphocytes 14.4 % (21.0-51.0); %Monocytes 13.3 % (0.0-10.0); %Neutrophils 65.5 % (42.0-75.0); Hematocrit 31.6 % (42.0-52.0); Hemoglobin 10.5 g/dL (14.0-18.0); Mean Corpuscular HGB CONC 33.2 g/dL (32.0-36.0); Mean Corpuscular Volume 99.4 fL (78.0-98.0); Platelet Count 235 10x3/uL (130-400); RBC Distribution Width 14.8 % (11.5-14.5); Red Blood Cell (RBC) Count 3.18 mill/uL (4.70-6.10)
[2024-05-06] MEDS: Montelukast Sodium 10 mg Tablet PO SCH (19:26)
[2024-05-06] MEDS: DULoxetine 30 MG CAP PO SCH (19:27)
[2024-05-06] MEDS: diphenhydrAMINE 50 MG/ML VIAL ONE (21:57)
[2024-05-07] MEDS: Sodium Chloride 0.9% 100 ML ONE (04:46)
[2024-05-07 07:40] LABS: #Basophils 0.06 10x3/uL (0.0-0.2); %Basophils 0.6 % (0.0-1.0); %Eosinophils 2.4 % (0.0-10.0); %Lymphocytes 13.8 % (21.0-51.0); %Monocytes 13.9 % (0.0-10.0); %Neutrophils 65.6 % (42.0-75.0); Hematocrit 32.5 % (42.0-52.0); Hemoglobin 10.8 g/dL (14.0-18.0); Mean Corpuscular HGB CONC 33.2 g/dL (32.0-36.0); Mean Corpuscular Hemoglobin 33.3 pg (27.0-31.0); Mean Corpuscular Volume 100.3 fL (78.0-98.0); Mean Platelet Volume 9.4 fL (7.4-10.4); Platelet Count 311 10x3/uL (130-400); RBC Distribution Width 14.5 % (11.5-14.5); Red Blood Cell (RBC) Count 3.24 mill/uL (4.70-6.10)
[2024-05-07 08:02] LABS: Anion Gap 13 mmol/L (10-20); BUN (Urea Nitrogen) 7 mg/dL (8.4-25.7); Calc. Creatinine Clearance 95 mL/min (70-130); Calcium 7.2 mg/dL (7.8-10.44); Carbon Dioxide 25 mmol/L (23-31); Chloride 99 mmol/L (98-107); Estimated GFR 91; Glucose 129 mg/dL (80-115); Potassium 3.4 mmol/L (3.5-5.1); Sodium 134 mmol/L (136-145)
[2024-05-07] MEDS ORDERED: Electrolyte Replacement Protocol 1 EACH FS SCH (10:30)
[2024-05-07] MEDS ORDERED: Electrolyte Replacement Protocol FS PRN (11:45)
[2024-05-07] MEDS: Potassium Chloride 20 MEQ TAB PO SCH (13:06)
[2024-05-07] MEDS: Ipratropium/Albuterol 3 ML NEB NEB SCH (14:47)
[2024-05-08 10:04] LABS: #Basophils 0.05 10x3/uL (0.0-0.2); %Basophils 0.6 % (0.0-1.0); %Eosinophils 2.6 % (0.0-10.0); %Lymphocytes 13.3 % (21.0-51.0); %Monocytes 13.5 % (0.0-10.0); %Neutrophils 67.1 % (42.0-75.0); Hematocrit 32.5 % (42.0-52.0); Hemoglobin 10.7 g/dL (14.0-18.0); Mean Corpuscular HGB CONC 32.9 g/dL (32.0-36.0); Mean Corpuscular Hemoglobin 32.6 pg (27.0-31.0); Mean Corpuscular Volume 99.1 fL (78.0-98.0); Mean Platelet Volume 9.4 fL (7.4-10.4); Platelet Count 323 10x3/uL (130-400); RBC Distribution Width 14.5 % (11.5-14.5); Red Blood Cell (RBC) Count 3.28 mill/uL (4.70-6.10)
[2024-05-08 10:31] LABS: ALT (SGPT) 12 U/L (8-55); AST (SGOT) 31 U/L (5-34); Albumin 2.3 g/dL (3.4-4.8); Alkaline Phosphatase 69 U/L (40-110); Anion Gap 13 mmol/L (10-20); BUN (Urea Nitrogen) 5 mg/dL (8.4-25.7); Bilirubin, Total 1.2 mg/dL (0.2-1.2); Calc. Creatinine Clearance 95 mL/min (70-130); Calcium 7.2 mg/dL (7.8-10.44); Carbon Dioxide 27 mmol/L (23-31); Chloride 98 mmol/L (98-107); Estimated GFR 91; Globulin 3.8 g/dL (2.4-3.5); Glucose 134 mg/dL (80-115); Potassium 3.4 mmol/L (3.5-5.1); Protein, Total 6.1 g/dL (5.8-8.1); Sodium 135 mmol/L (136-145)
[2024-05-08 11:09] LABS: Magnesium Less than 0.6 mg/dL (1.6-2.6)
[2024-05-08] MEDS: Potassium Chloride 20 MEQ TAB PO SCH (11:57)
[2024-05-08] MEDS: Magnesium Sulfate In Water 4 GM in Premix 1 BAG IVPB SCH ×2 (11:57→21:18)
[2024-05-08] MEDS: oxyCODONE/Acetaminophen 5 mg/325 mg Tablet PO SCH (11:58)
[2024-05-08 18:30] LABS: Magnesium 1.3 mg/dL (1.6-2.6)
[2024-05-08] MEDS: oxyCODONE/Acetaminophen 5 mg/325 mg Tablet PO PRN (23:59)
[2024-05-09 06:30] LABS: #Basophils 0.05 10x3/uL (0.0-0.2); %Basophils 0.4 % (0.0-1.0); %Lymphocytes 12.4 % (21.0-51.0); %Monocytes 12.8 % (0.0-10.0); Hematocrit 32.6 % (42.0-52.0); Hemoglobin 10.9 g/dL (14.0-18.0); Mean Corpuscular HGB CONC 33.4 g/dL (32.0-36.0); Mean Corpuscular Volume 98.8 fL (78.0-98.0); Mean Platelet Volume 9.1 fL (7.4-10.4); Platelet Count 378 10x3/uL (130-400); RBC Distribution Width 14.4 % (11.5-14.5)
[2024-05-09 06:54] LABS: ALT (SGPT) 14 U/L (8-55); AST (SGOT) 31 U/L (5-34); Albumin 2.4 g/dL (3.4-4.8); Alkaline Phosphatase 94 U/L (40-110); Anion Gap 13 mmol/L (10-20); BUN (Urea Nitrogen) 5 mg/dL (8.4-25.7); Bilirubin, Total 1.3 mg/dL (0.2-1.2); Calc. Creatinine Clearance 99 mL/min (70-130); Calcium 8.1 mg/dL (7.8-10.44); Carbon Dioxide 25 mmol/L (23-31); Chloride 98 mmol/L (98-107); Estimated GFR 94; Glucose 111 mg/dL (80-115); Magnesium 1.6 mg/dL (1.6-2.6); Potassium 4.1 mmol/L (3.5-5.1); Protein, Total 6.4 g/dL (5.8-8.1); Sodium 132 mmol/L (136-145)
[2024-05-09 07:38] VITALS: TEMP 98
[2024-05-09] MEDS: Magnesium 2 GM/50 ML(in water) 2 GM in Premix 1 BAG IVPB SCH (08:24)
[2024-05-09] MEDS: cefTRIAXone\\ROCEPHIN 2 GM in Sodium Chloride 0.9% 100 ML IVPB SCH (11:09)
[2024-05-09 15:53] VITALS: BP 132/80
== END 2024-05-09 18:30 | disposition home or self-care (01) | DRG 444 ==
LOC: T4-B 19:13 → UNDOADMIN 19:13 → SURG B 19:13
PROVIDERS: ADMIT Internal Medicine; ATTEND Family Medicine
DX: K80.00 Calculus of gallbladder with acute cholecystitis without obstruction (principal); A41.9 Sepsis, unspecified organism; C19 Malignant neoplasm of rectosigmoid junction; D84.9 Immunodeficiency, unspecified; I10 Essential (primary) hypertension; J45.20 Mild intermittent asthma, uncomplicated; D63.8 Anemia in other chronic diseases classified elsewhere; E87.6 Hypokalemia; E83.42 Hypomagnesemia; Z88.0 Allergy status to penicillin; Z88.5 Allergy status to narcotic agent; Z91.018 Allergy to other foods; Z79.899 Other long term (current) drug therapy; Z98.890 Other specified postprocedural states; Z87.891 Personal history of nicotine dependence
CPT/HCPCS: 36415; 74018; 80048; 80053; 83735; 85025; 87040; 94640; J0696; J1200; J1642; J1650; J2272; J2543; J3475; J7620; Q0163

== ENCOUNTER 2024-06-02 13:57 | Outpatient (CLI) | payer MEDICARE | END 2024-06-02 13:58 | disposition home or self-care (01) | LOC: BICCT 13:57 | PROVIDERS: ATTEND Internal Medicine Hematology & Oncology | DX: C18.0 Malignant neoplasm of cecum (principal); C18.4 Malignant neoplasm of transverse colon; D50.0 Iron deficiency anemia secondary to blood loss (chronic); D70.8 Other neutropenia; K80.20 Calculus of gallbladder without cholecystitis without obstruction; Z90.49 Acquired absence of other specified parts of digestive tract | CPT/HCPCS: 36415; 71260; 74177; 80053; 83690; 85025 ==

== ENCOUNTER → 2024-06-02 | Emergency (ER) | payer MEDICARE ==
[2024-06-02 11:55] LABS: #Basophils 0.03 10x3/uL (0.0-0.2); %Basophils 0.6 % (0.0-1.0); %Monocytes 10.6 % (0.0-10.0); %Neutrophils 48.6 % (42.0-75.0); Hematocrit 38.7 % (42.0-52.0); Hemoglobin 12.6 g/dL (14.0-18.0); Mean Corpuscular HGB CONC 32.6 g/dL (32.0-36.0); Mean Corpuscular Volume 101.3 fL (78.0-98.0); Mean Platelet Volume 9.7 fL (7.4-10.4); Platelet Count 165 10x3/uL (130-400); RBC Distribution Width 13.2 % (11.5-14.5); Red Blood Cell (RBC) Count 3.82 mill/uL (4.70-6.10)
[2024-06-02 12:22] LABS: ALT (SGPT) 25 U/L (8-55); AST (SGOT) 37 U/L (5-34); Albumin 3.7 g/dL (3.4-4.8); Alkaline Phosphatase 166 U/L (40-110); Anion Gap 14 mmol/L (10-20); BUN (Urea Nitrogen) 8 mg/dL (8.4-25.7); Bilirubin, Total 0.7 mg/dL (0.2-1.2); Calc. Creatinine Clearance 0 mL/min (70-130); Calcium 8.9 mg/dL (7.8-10.44); Carbon Dioxide 27 mmol/L (23-31); Chloride 106 mmol/L (98-107); Estimated GFR 83; Glucose 102 mg/dL (80-115); Lipase 44 U/L (8-78); Potassium 3.7 mmol/L (3.5-5.1); Protein, Total 7.7 g/dL (5.8-8.1); Sodium 143 mmol/L (136-145)
== END ==
LOC: ERS 11:14
DX: T85.520A Displacement of bile duct prosthesis, initial encounter (principal); I10 Essential (primary) hypertension; C18.9 Malignant neoplasm of colon, unspecified; Z55.6 Problems related to health literacy; Z87.891 Personal history of nicotine dependence
CPT/HCPCS: 36415; 80053; 83690; 85025

== ENCOUNTER 2024-07-29 08:35 | Outpatient (CLI) | payer MEDICARE | END 2024-07-29 08:36 | disposition home or self-care (01) | LOC: BICCT 08:35 | PROVIDERS: ATTEND Internal Medicine Hematology & Oncology | DX: C18.4 Malignant neoplasm of transverse colon (principal); C18.0 Malignant neoplasm of cecum; D50.0 Iron deficiency anemia secondary to blood loss (chronic); D70.8 Other neutropenia; K80.20 Calculus of gallbladder without cholecystitis without obstruction; K82.8 Other specified diseases of gallbladder | CPT/HCPCS: 71260; 74177 ==

== ENCOUNTER 2025-02-02 08:45 | Outpatient (CLI) | payer MEDICARE | END 2025-02-02 08:46 | disposition home or self-care (01) | LOC: CT 08:45 | PROVIDERS: ATTEND Internal Medicine Hematology & Oncology | DX: C18.0 Malignant neoplasm of cecum (principal); C18.4 Malignant neoplasm of transverse colon; D50.0 Iron deficiency anemia secondary to blood loss (chronic); D70.8 Other neutropenia; Z79.899 Other long term (current) drug therapy | CPT/HCPCS: 71260; 74177 ==

== ENCOUNTER 2025-04-20 09:46 | Day surgery (SDC) | payer MEDICARE ==
[2025-04-20] MEDS: Magnesium Sulfate In Water 4 GM in Premix 1 BAG IVPB SCH (10:02)
[2025-04-20 11:30] VITALS: BP 115/60; TEMP 97.7
== END 2025-04-20 12:45 | disposition home or self-care (01) ==
LOC: ONC/OP 09:46
PROVIDERS: ATTEND Internal Medicine Hematology & Oncology
DX: C18.0 Malignant neoplasm of cecum (principal); C18.4 Malignant neoplasm of transverse colon; D50.0 Iron deficiency anemia secondary to blood loss (chronic); D70.8 Other neutropenia; Z79.899 Other long term (current) drug therapy; Z88.0 Allergy status to penicillin; Z88.8 Allergy status to other drugs, medicaments and biological substances; Z91.018 Allergy to other foods
CPT/HCPCS: 96365; 96366; J1642; J3475

== ENCOUNTER 2025-05-12 09:18 | Day surgery (SDC) | payer MEDICARE ==
[2025-05-12] MEDS: Magnesium Sulfate In Water 4 GM in Premix 1 BAG IVPB SCH (10:04)
[2025-05-12 11:43] VITALS: BP 152/76; TEMP 97.9
== END 2025-05-12 12:20 | disposition home or self-care (01) ==
LOC: ONC/OP 09:18
PROVIDERS: ATTEND Internal Medicine Hematology & Oncology
DX: C18.0 Malignant neoplasm of cecum (principal); C18.4 Malignant neoplasm of transverse colon; D50.0 Iron deficiency anemia secondary to blood loss (chronic); D70.8 Other neutropenia; Z79.899 Other long term (current) drug therapy; Z88.0 Allergy status to penicillin; Z88.5 Allergy status to narcotic agent; Z91.018 Allergy to other foods
CPT/HCPCS: 96365; 96366; J1642; J3475